=== PATIENT | male | born 1960 ===

== ENCOUNTER 2019-05-07 13:35 | Emergency (ER) | payer OTHER, BC ==
[~2019-05-07] VITALS: Ht 170.2 cm; Wt 74.8 kg
[~2019-05-07 13:35] MED LIST: IBUP600 PO; Percocet 5-3251 EACH PO
== END 2019-05-07 15:32 | disposition home or self-care (01) ==
LOC: ER 13:35
DX: S61.210A Laceration without foreign body of right index finger without damage to nail, initial encounter (principal); Z87.891 Personal history of nicotine dependence; W22.8XXA Striking against or struck by other objects, initial encounter
CPT/HCPCS: 12001; 99282-25

== ENCOUNTER → 2020-02-14 | Outpatient (CLI) | payer BC | END | disposition home or self-care (01) | LOC: LAB SHORT 11:46 → LAB EV 11:46 | DX: Z20.818 Contact with and (suspected) exposure to other bacterial communicable diseases (principal) | CPT/HCPCS: 87081 ==

== ENCOUNTER 2023-05-17 07:26 | Emergency (ER) | payer OTHER, BC ==
[~2023-05-17] VITALS: Ht 170.2 cm; Wt 74.8 kg
[2023-05-17 07:39] VITALS: BP 135/81
[2023-05-17] MEDS ORDERED: IBUP600 PO (08:21)
== END 2023-05-17 08:45 | disposition home or self-care (01) ==
LOC: ER 07:26
DX: S93.402A Sprain of unspecified ligament of left ankle, initial encounter (principal); X50.1XXA Overexertion from prolonged static or awkward postures, initial encounter; Y99.0 Civilian activity done for income or pay; Z87.891 Personal history of nicotine dependence
CPT/HCPCS: 73610; 96372; 99283-25; J1885

== ENCOUNTER 2024-07-19 10:42 | Emergency (ER) | payer OTHER, BC ==
[~2024-07-19] VITALS: Ht 170.2 cm; Wt 77.1 kg
[2024-07-19 10:48] VITALS: BP 150/91
== END 2024-07-19 10:53 | disposition other institution (70) ==
LOC: ER 10:42
DX: S01.81XA Laceration without foreign body of other part of head, initial encounter (principal); W22.8XXA Striking against or struck by other objects, initial encounter; Z87.891 Personal history of nicotine dependence; Z79.1 Long term (current) use of non-steroidal anti-inflammatories (NSAID)
CPT/HCPCS: 99282